=== PATIENT | female | born 1975 | race Caucasian/White ===

== ENCOUNTER 2016-10-31 17:51 | Emergency (ER) | payer OTHER ==
[~2016-10-31] VITALS: Ht 175.3 cm; Wt 59.3 kg
[~2016-10-31 17:51] MED LIST: DEPAKOTE500 MG PO; PLAQUENIL200 MG PO; TYLENOL WITH C1 EACH PO
[2016-10-31 18:33] LABS: HEMATOCRIT 36.3 % (36.0-46.0); MCHC 32.8 G/DL (30.0-36.0); MCV 91.4 FL (83-99); MEAN PLAT.VOLUME 9.5 uM^3 (9.5-12.4); PLATELET COUNT 305 K/uL (156-360); RBC DIS.WIDTH-CV 11.9 % (11.8-14.6); RED BLOOD COUNT 3.97 M/uL (3.80-5.20); WHITE BLOOD COUNT 6.2 K/uL (4.1-10.2)
[2016-10-31 18:51] LABS: CHLORIDE 109 mEq/L (99-109); POTASSIUM 4.5 mEq/L (3.7-5.4); SODIUM 141 mEq/L (136-147)
[2016-10-31 18:52] LABS: GLUCOSE 97 mg/dL (70-99)
[2016-10-31 18:54] LABS: ANION GAP 5 MEQ/L (2-14)
[2016-10-31 18:56] LABS: GFR ESTIMATE (CALCULATED) > 59 mL/min/
[2016-10-31 18:57] LABS: UREA NITROGEN (BUN) 14 mg/dL (9-23)
[2016-10-31 19:08] LABS: TROP-I INTERPRETATION NEGATIVE; TROPONIN-I < 0.01 ng/mL (0.0-0.30)
[2016-10-31 22:48] LABS: INTERNAL CONTROL VALID? YES; MONOSPOT (MONONUCLEOSIS SEROL) NEGATIVE
[2016-10-31] MEDS ORDERED: MEDROL DOSEPAK4 MG PO (23:30)
[2016-10-31] MEDS ORDERED: FIORICET,ESG1 TABLET PO (23:30)
[2016-10-31] MEDS ORDERED: REGLAN10 MG PO (23:30)
[2016-10-31 23:53] VITALS: BP 109/69
== END 2016-10-31 23:53 | disposition home or self-care (01) ==
LOC: EME 17:51
DX: G43.909 Migraine, unspecified, not intractable, without status migrainosus (principal); R00.2 Palpitations; M54.2 Cervicalgia
CPT/HCPCS: 70450; 71020; 80048; 84484; 85027; 86308; 93005; J1100; J2270; J2765

== ENCOUNTER 2016-12-14 17:05 | Emergency (ER) | payer OTHER ==
[~2016-12-14] VITALS: Ht 175.3 cm; Wt 60.2 kg
[~2016-12-14 17:05] MED LIST changes: +FIORICET,ESG1 TABLET PO; +MEDROL DOSEPAK4 MG PO; +REGLAN10 MG PO
[2016-12-14 17:54] LABS: ADD MIUA? NO; BILIRUBIN NEGATIVE; BLOOD NEGATIVE; COLOR STRAW ((YELLOW)); GLUCOSE (STRIP) NEGATIVE; KETONES NEGATIVE; LEUKOCYTES NEGATIVE; NITRITE NEGATIVE; PROTEIN (STRIP) NEGATIVE; SPECIFIC GRAVITY 1.011 (1.000-1.030); UROBILINOGEN 0.2 MG/DL (0.2-1.0)
[2016-12-14 17:59] LABS: BASOPHIL COUNT 0.1 K/uL (0-0.1); EOSINOPHIL (%) 0.9 % (0-5); EOSINOPHIL COUNT 0.1 K/uL (0-0.3); HEMATOCRIT 38.1 % (36.0-46.0); IMMATURE GRANULOCYTE (%) 0.3 % (0.0-0.7); INSTRUMENT ABS NEUTROPHIL CT 7.4 K/uL; LYMPHOCYTE COUNT 3.5 K/uL (1.0-2.8); MCH 30.1 PG (29.0-34.0); MCHC 33.3 G/DL (30.0-36.0); MCV 90.3 FL (83-99); MEAN PLAT.VOLUME 9.4 uM^3 (9.5-12.4); MONOCYTE (%) 6.3 % (3-12); MONOCYTE COUNT 0.8 K/uL (0-0.8); NEUTROPHIL (%) 62.6 % (45-76); NEUTROPHIL COUNT 7.4 K/uL (1.8-6.4); PLATELET COUNT 319 K/uL (156-360); RBC DIS.WIDTH-SD 39.5 % (39-53); RED BLOOD COUNT 4.22 M/uL (3.80-5.20)
[2016-12-14 18:01] LABS: WHITE BLOOD COUNT 11.9 K/uL (4.1-10.2)
[2016-12-14 18:08] LABS: CHLORIDE 107 mEq/L (99-109); SODIUM 140 mEq/L (136-147)
[2016-12-14 18:10] LABS: GLUCOSE 86 mg/dL (70-99)
[2016-12-14 18:11] LABS: ANION GAP 8 MEQ/L (2-14)
[2016-12-14 18:12] LABS: TOTAL BILIRUBIN 0.4 mg/dL (0.0-1.0)
[2016-12-14 18:14] LABS: ALKALINE PHOSPHATASE 30 IU/L (3-129); GFR ESTIMATE (CALCULATED) 58 mL/min/
[2016-12-14 18:15] LABS: UREA NITROGEN (BUN) 17 mg/dL (9-23)
[2016-12-14 18:22] LABS: QUANTITATIVE HCG < 4.0 MIU/ML
[2016-12-14] MEDS ORDERED: BENTYL10 MG PO (19:49)
[2016-12-14 20:01] VITALS: BP 104/65
== END 2016-12-14 20:07 | disposition home or self-care (01) ==
LOC: EME 17:05
PROVIDERS: Physician Assistant
DX: R10.84 Generalized abdominal pain (principal); R53.83 Other fatigue; Z91.040 Latex allergy status; Z98.2 Presence of cerebrospinal fluid drainage device; Z86.73 Personal history of transient ischemic attack (TIA), and cerebral infarction without residual deficits; L93.0 Discoid lupus erythematosus; G91.9 Hydrocephalus, unspecified
CPT/HCPCS: 70450; 74176; 80053; 81003; 84702; 85025; 99281; 99284; J1885

== ENCOUNTER 2017-09-16 17:35 | Emergency (ER) | payer OTHER ==
[~2017-09-16] VITALS: Ht 175.3 cm; Wt 54.5 kg
[~2017-09-16 17:35] MED LIST changes: +BENTYL10 MG PO
[2017-09-16 18:16] LABS: HEMATOCRIT 40.3 % (36.0-46.0); HEMOGLOBIN 13.5 G/DL (11.9-15.5); MCH 30.4 PG (29.0-34.0); MCHC 33.5 G/DL (30.0-36.0); MCV 90.8 FL (83-99); PLATELET COUNT 332 K/uL (156-360); RBC DIS.WIDTH-CV 11.9 % (11.8-14.6); RBC DIS.WIDTH-SD 39.7 % (39-53); RED BLOOD COUNT 4.44 M/uL (3.80-5.20); WHITE BLOOD COUNT 8.2 K/uL (4.1-10.2)
[2017-09-16 18:20] LABS: APPEARANCE SL.HAZY ((CLEAR)); BILIRUBIN NEGATIVE; BLOOD NEGATIVE; COLOR YELLOW ((YELLOW)); GLUCOSE (STRIP) NEGATIVE; KETONES NEGATIVE; LEUKOCYTES NEGATIVE; NITRITE NEGATIVE; PROTEIN (STRIP) NEGATIVE; SPECIFIC GRAVITY 1.024 (1.000-1.030); UROBILINOGEN 0.2 MG/DL (0.2-1.0)
[2017-09-16 18:29] LABS: BACTERIA RARE /HPF; EPITHELIAL CELLS 1+ /HPF; MUCUS 1+ /LPF; RED BLOOD CELLS 0-5 /HPF (0-5); UCUL ADDED? NO; WHITE BLOOD CELLS 0-5 /HPF (0-5)
[2017-09-16 18:31] LABS: ALBUMIN 4.8 g/dL (3.2-4.8)
[2017-09-16 18:32] LABS: CHLORIDE 107 mEq/L (99-109); POTASSIUM 4.4 mEq/L (3.7-5.4); SODIUM 141 mEq/L (136-147)
[2017-09-16 18:34] LABS: GLUCOSE 97 mg/dL (70-99); TOTAL PROTEIN 7.6 g/dL (6.4-8.3)
[2017-09-16 18:36] LABS: TOTAL BILIRUBIN 0.6 mg/dL (0.0-1.0)
[2017-09-16 18:37] LABS: ALKALINE PHOSPHATASE 35 IU/L (3-129)
[2017-09-16 18:38] LABS: CREATININE 0.8 mg/dL (0.6-1.3); GFR ESTIMATE (CALCULATED) > 59 mL/min/
[2017-09-16 18:39] LABS: AST (GOT) 11 IU/L (2-34); UREA NITROGEN (BUN) 15 mg/dL (9-23)
[2017-09-16 18:40] LABS: ALT (GPT) 8 IU/L (3-49)
[2017-09-16 18:50] LABS: QUANTITATIVE HCG < 4.0 MIU/ML
[2017-09-16 21:43] VITALS: BP 113/72
== END 2017-09-16 21:44 | disposition home or self-care (01) ==
LOC: EME 17:35
DX: A08.4 Viral intestinal infection, unspecified (principal); N83.202 Unspecified ovarian cyst, left side; R93.5 Abnormal findings on diagnostic imaging of other abdominal regions, including retroperitoneum; Z98.2 Presence of cerebrospinal fluid drainage device; Z86.73 Personal history of transient ischemic attack (TIA), and cerebral infarction without residual deficits
CPT/HCPCS: 74177; 76856; 80053; 81003; 84702; 85027; 99281; 99284; J7030; S0028

== ENCOUNTER 2017-12-22 16:25 | Emergency (ER) | payer OTHER ==
[~2017-12-22] VITALS: Ht 175.3 cm; Wt 55.2 kg
[2017-12-22 17:54] LABS: HEMOGLOBIN 13.8 G/DL (11.9-15.5); MCH 31.4 PG (29.0-34.0); MCHC 34.5 G/DL (30.0-36.0); MCV 90.9 FL (83-99); PLATELET COUNT 319 K/uL (156-360); RBC DIS.WIDTH-CV 12.2 % (11.8-14.6); RBC DIS.WIDTH-SD 40.6 % (39-53)
[2017-12-22 18:03] LABS: CHLORIDE 105 mEq/L (99-109); POTASSIUM 4.6 mEq/L (3.7-5.4); SODIUM 141 mEq/L (136-147)
[2017-12-22 18:05] LABS: GLUCOSE 96 mg/dL (70-99)
[2017-12-22 18:08] LABS: CREATININE 0.8 mg/dL (0.6-1.3); GFR ESTIMATE (CALCULATED) > 59 mL/min/
[2017-12-22 18:09] LABS: UREA NITROGEN (BUN) 14 mg/dL (9-23)
[2017-12-22 18:15] LABS: TROP-I INTERPRETATION NEGATIVE; TROPONIN-I 0.01 ng/mL (0.0-0.30)
[2017-12-22] MEDS ORDERED: ULTRAM50 MG PO (18:47)
[2017-12-22] MEDS ORDERED: PREDNISONE20 MG PO (18:47)
[2017-12-22] MEDS ORDERED: FLEXERIL10 MG PO (18:47)
[2017-12-22 19:01] VITALS: BP 114/67
== END 2017-12-22 19:02 | disposition home or self-care (01) ==
LOC: EME 16:25
PROVIDERS: Physician Assistant
DX: M54.9 Dorsalgia, unspecified (principal); M54.2 Cervicalgia; M32.9 Systemic lupus erythematosus, unspecified; Z86.73 Personal history of transient ischemic attack (TIA), and cerebral infarction without residual deficits; Z91.040 Latex allergy status
CPT/HCPCS: 72040; 80048; 84484; 85027; 93005; 99281; 99284; J7512

== ENCOUNTER 2018-01-07 12:49 | Observation (INO) | payer OTHER ==
[~2018-01-07] VITALS: Ht 175.3 cm; Wt 58.1 kg
[~2018-01-07 12:49] MED LIST changes: +FLEXERIL10 MG PO; +PREDNISONE20 MG PO; +ULTRAM50 MG PO
[2018-01-07 13:19] LABS: HEMATOCRIT 35.7 % (36.0-46.0); HEMOGLOBIN 12.3 G/DL (11.9-15.5); MCH 31.3 PG (29.0-34.0); MCHC 34.5 G/DL (30.0-36.0); MCV 90.8 FL (83-99); PLATELET COUNT 259 K/uL (156-360); RBC DIS.WIDTH-CV 11.9 % (11.8-14.6); RBC DIS.WIDTH-SD 39.9 % (39-53); RED BLOOD COUNT 3.93 M/uL (3.80-5.20); WHITE BLOOD COUNT 6.7 K/uL (4.1-10.2)
[2018-01-07 13:28] LABS: CHLORIDE 108 mEq/L (99-109); POTASSIUM 3.9 mEq/L (3.7-5.4); SODIUM 141 mEq/L (136-147)
[2018-01-07 13:29] LABS: GLUCOSE 96 mg/dL (70-99)
[2018-01-07 13:33] LABS: CREATININE 0.8 mg/dL (0.6-1.3); GFR ESTIMATE (CALCULATED) > 59 mL/min/
[2018-01-07 13:34] LABS: UREA NITROGEN (BUN) 14 mg/dL (9-23)
[2018-01-07 14:16] LABS: PTT 31.3 SEC (25-37)
[2018-01-07 14:17] LABS: QUANTITATIVE HCG < 4.0 MIU/ML
[2018-01-07 14:46] LABS: HDL CHOLESTEROL 56 MG/DL (Desirable>=50); LDL CHOLESTEROL 76 mg/dL (Desirable<100); NON-HDL CHOLESTEROL 91 mg/dL (Desirable<160); TOTAL CHOLESTEROL 147 mg/dL (Desirable<200); TRIGLYCERIDES 74 MG/DL (Normal: <150)
[2018-01-07] MEDS ORDERED: ADDERALL XR 1010 MG PO (16:06)
[2018-01-07] MEDS ORDERED: PERCOCET 5/31 TABLET PO (16:06)
[2018-01-07] MEDS ORDERED: CENTRUM WOMEN1 EACH PO (17:11)
[2018-01-07] MEDS ORDERED: ULTRAM50 MG PO (17:11)
[2018-01-07 18:23] VITALS: BP 120/70
[2018-01-08 00:34] VITALS: BP 90/54
[2018-01-08 04:11] VITALS: BP 89/50
[2018-01-08 07:52] VITALS: BP 112/61
[2018-01-08 10:44] LABS: HEMOGLOBIN A1c (GLYCOHEMOGLOB) 5.5 % (Below 5.7)
[2018-01-08 12:00] VITALS: BP 128/77
== END 2018-01-08 15:18 | disposition home or self-care (01) ==
LOC: EME 12:49 → 4SOUTH 15:47 → EDOF 15:47 → ENRESERV 15:57 → 4SOUTH 18:13
PROVIDERS: Emergency Medicine
DX: H53.2 Diplopia (principal); R51 Headache; H02.401 Unspecified ptosis of right eyelid; M32.9 Systemic lupus erythematosus, unspecified; Z86.73 Personal history of transient ischemic attack (TIA), and cerebral infarction without residual deficits; Z87.19 Personal history of other diseases of the digestive system; G91.9 Hydrocephalus, unspecified; Z98.2 Presence of cerebrospinal fluid drainage device; A69.20 Lyme disease, unspecified; Z98.1 Arthrodesis status; Z80.1 Family history of malignant neoplasm of trachea, bronchus and lung; Z82.3 Family history of stroke
CPT/HCPCS: 70450; 70551; 71045; 80048; 80061; 83036; 84702; 85027; 85610; 85651; 85730; 92523 GN; 93005; 99281; 99285; G0378; G9162 GN CH; G9163 GN CH; G9164 GN CH; J1200; J1885; J2765; J7030